=== PATIENT | female | born 1945 ===

== ENCOUNTER 2019-07-04 05:30 | Day surgery (SDC) | payer OTHER ==
[~2019-07-04 05:30] MED LIST: CALCIUM500 M2 PO; GABAPENTIN800 M1 PO; GLIPIZIDE XL2.5 MG PO; METFORMIN HCL1000 M2 PO; PANTOPRAZOLE SO20 MG PO; SIMVASTATIN5 MG PO; VITAMIN D32000 UNI1 PO; ZESTRIL10 M1 PO
== END 2019-07-04 17:29 | disposition home or self-care (01) ==
LOC: CIR.AMB 05:30 → ADM 10:30 → CIR.AMB 10:30
DX: N81.2 Incomplete uterovaginal prolapse (principal)